=== PATIENT | male | born 1940 | race Caucasian/White ===

== ENCOUNTER 2021-12-23 12:15 | Emergency (ER) | payer MEDICARE, BC ==
[~2021-12-23] VITALS: Ht 167.6 cm; Wt 59.1 kg
[2021-12-23 12:31] VITALS: BP 86/50
[2021-12-23] MEDS ORDERED: MUPI22OI30 TOP (14:08)
[2021-12-23] MEDS ORDERED: CLOT30CR24 TOP (14:08)
[2021-12-23] MEDS ORDERED: DOXY100C76 PO (14:08)
[2021-12-23] MEDS ORDERED: LIDOcaine 1% 30ml preserv. free vial IJ ONE (14:35)
--- NOTE | 2021-12-23 14:56 | NUR ---
catheter removed, per PA orders
[2021-12-23] MEDS ORDERED: LIDOcaine 2% 10ml TOPICAL JELLY (Urojet) TP ONE (16:00)
== END 2021-12-23 17:14 | disposition home or self-care (01) ==
LOC: ER 12:16
DX: N48.1 Balanitis (principal); N47.2 Paraphimosis; G89.29 Other chronic pain; Z96.0 Presence of urogenital implants; Z79.2 Long term (current) use of antibiotics; Z79.899 Other long term (current) drug therapy; Z87.440 Personal history of urinary (tract) infections
CPT/HCPCS: 51702; 99284